=== PATIENT | male | born 1990 | race Caucasian/White ===

== ENCOUNTER 2016-12-15 19:45 | Emergency (ER) | payer OTHER | END 2016-12-16 00:41 | disposition left against medical advice (07) | LOC: ER1 19:45 | DX: Z53.21 Procedure and treatment not carried out due to patient leaving prior to being seen by health care provider (principal) ==

== ENCOUNTER 2017-02-10 18:36 | Emergency (ER) | payer OTHER | END 2017-02-10 19:57 | disposition left against medical advice (07) | LOC: ER1 18:36 | DX: Z53.21 Procedure and treatment not carried out due to patient leaving prior to being seen by health care provider (principal) ==